=== PATIENT | male | born 1980 | race African-American/Black ===

== ENCOUNTER 2016-11-12 09:41 | Emergency (ER) | payer OTHER ==
--- NOTE | ~2016-11-12 | CR126 ---
[facility] A Service of [facility] RADIOLOGY TEXT RESULTS PATIENT: ANDREW POLK LOCATION: CFTX : 78 UNIT #: [id number] AGE: [address]: Jj Delgadillo SEX: M ORDER DR: [id number] [facility] [address] [place], [place] [address] [id number] E MR#: [id number] Acc #: [id number] NAME: ANDREW POLK : 1980 SEX: M STUDY DATE/TIME: 11/12/2016 11:19 UNIT: CFTX ROOM: STUDY DESCRIPTION: CR Foot Complete Min 3 View Lt Attending Physician: Jj Delgadillo Ordering Physician: Jj Delgadillo Primary Care Physician: No Primary Care Physician MEDICAL IMAGING REPORT This report is preliminary unless electronic signature is present EXAM Left foot, 3 views, 11/12/2016, 1119 hours. CLINICAL HISTORY 36-year-old man who injured his foot at work today. Pain and swelling of the great toe and below the great toe. COMPARISON None. FINDINGS AP, lateral, and oblique views demonstrate overall normal bone density. There is no fracture or dislocation. The sesamoid bones deep to the first metatarsal appear normal. There is no foreign body seen. IMPRESSION No fracture, dislocation, or foreign body seen. Dictated by... Beckie García M.D. THIS IS AN ELECTRONICALLY VERIFIED REPORT Beckie García M.D. at 11/12/2016 2:29 PM DAVIS/mansoor TD: 11/12/2016 11:57 JOB #: [id number] MEDICAL IMAGING REPORT Page 1 of 1 COPY
== END 2016-11-12 13:09 | disposition home or self-care (01) ==
LOC: CFTX 09:41 → CED 09:41 → CFTX 11:08
DX: S91.012A Laceration without foreign body, left ankle, initial encounter (principal); F17.210 Nicotine dependence, cigarettes, uncomplicated; W19.XXXA Unspecified fall, initial encounter; Y92.69 Other specified industrial and construction area as the place of occurrence of the external cause
CPT/HCPCS: 12002; 73630; 99283